=== PATIENT | male | born 1950 | race Caucasian/White ===

== ENCOUNTER 2024-01-21 21:01 | Emergency (ER) | payer OTHER, SELFPAY ==
[2024-01-21 21:09] VITALS: BP 144/64; PULSE 84; RESP 16; TEMP 36.6; O2SAT 98; BMI 21.6
--- NOTE | 2024-01-21 21:14 | ED_ITS ---
HPI - Wound/Laceration General Chief Complaint: Wound/Laceration Stated Complaint: chin laceration Time Seen by Provider: 01/21/24 21:12 Source: patient Mode of arrival: Ambulatory History of Present Illness HPI narrative: 73-year-old male with history of hypertension, end-stage renal disease on dialysis awaiting renal transplant. Patient was hiking today on [facility], caught a branch underneath his chin which caught him. He states he did not fall or have any other injuries. He does note he has some abrasions on his arms from his dogs claws but no other injuries. States tetanus is updated in the last 2 or 3 years. No known drug allergies. He is on medication for blood pressure, calcium and vitamin-D. No tobacco, occasional alcohol, no recreational drugs. Patient states no major surgeries. He lives in [place] but was visiting a property on [place] that they own. Patient is accompanied by his son. Review of Systems Review of Systems ROS Unobtainable: All systems reviewed & are unremarkable except as noted in HPI and below Patient History Social History Smoking Status: Never smoker Smoking Status: Never smoker alcohol intake frequency: holidays/special occasions only Substance Use Type: does not use Exam Narrative Exam Narrative: GENERAL: Alert and oriented x three, well-appearing male in mild distress HEENT: Head normocephalic, atraumatic except for 1/2 cm linear laceration in the soft tissue underneath the chin which gapes maximum 1/2 inch subcutaneous tissue exposed, no bone exposed is not through and through, EOMI, pupils reactive, face symmetric, moist mucous membranes NECK: Supple, full range of motion CARDIOVASCULAR: Regular rate and rhythm without murmurs, rubs or gallops. RESPIRATORY: Breath sounds equal bilaterally, no wheezes rales or rhonchi. ABDOMEN: Soft, nontender. Normoactive bowel sounds all 4 quadrants. No guarding or rebound, rigidity, no mass : No CVA tenderness EXTREMITIES: Normal range of motion, no clubbing or edema. Neurovascularly intact. Patient has a abrasions bilateral upper extremities, no warmth, erythema or other skin changes. NEUROLOGICAL: Cranial nerves II through XII grossly intact. Moving all extremities SKIN: Warm, dry, no petechiae, no rashes or lesions noted other than above. Initial Vital Signs Initial Vital Signs: Vital Signs Temperature 97.9 F 01/21/24 21:09 Pulse Rate 84 01/21/24 21:09 Respiratory Rate 16 01/21/24 21:09 Blood Pressure 144/64 H 01/21/24 21:09 Pulse Oximetry 98 01/21/24 21:09 Oxygen Delivery Method Room Air 01/21/24 21:09 Procedures Laceration Repair Laceration 1: Time of procedure: :29 Site: face (chin) Size (cm): 1.5 Description: linear and clean Depth: simple, single layer Local Anesthetic: lidocaine 2% Amount of anesthesia used (mL): 3 Pre-repair: wound explored, irrigated extensively and deep structures intact Skin layer closed with: nylon Skin layer suture size: 4-0 Number of sutures: 4 Technique: simple, interrupted Course Vital Signs Vital signs: Vital Signs - 8 hr 01/21/24 21:09 01/21/24 21:46 Temperature 97.9 F Pulse Rate 84 77 Respiratory Rate 16 18 Blood Pressure 144/64 H Pulse Oximetry 98 99 Oxygen Delivery Method Room Air MDM - Wound/Laceration MDM Narrative Medical decision making narrative: This is a 73-year-old male who had a laceration to his chin while hiking tree branch cut him. Patient states he did not have a fall or other injuries. Patient's tetanus is up-to-date. Area was cleansed, area was sutured patient tolerated well. Discussed return precautions and signs and symptoms to watch for. All questions answered. Discharge Plan Departure Patient Disposition: Home Clinical Impression: Chin laceration Instructions: DI for Laceration Repair Activity Restrictions/Additional Instructions: Follow up in the next 7-10 days for suture removal. You can follow up with primary care, urgent care for removal. 4 sutures were placed today. Wound Care: Keep wound(s) clean and dry. Wash daily with soap and water only. Do not use over the counter products (alcohol or peroxide)on the wounds unless instructed by a physician. You may use a topical triple antibiotic ointment to the affected area once daily as needed. If wound condition worsens (increased/expanding redness, developing fluid blisters, or worsening pain), either contact your doctor for an urgent re- assessment , or return to the Emergency Department. Return to the Emergency Department for any new or worsening symptoms. Return if fever greater than 100.4 Fahrenheit, increased swelling, increasing pain or worsening symptoms such as increased discharge or spreading redness. Stand Alone Forms: Patient Portal/API
[2024-01-21 21:46] VITALS: PULSE 77; RESP 18; O2SAT 99
== END 2024-01-21 21:48 | disposition home or self-care (01) ==
PROVIDERS: Emergency Provider Emergency Medicine
DX: S01.81XA Laceration without foreign body of other part of head, initial encounter (principal); W18.30XA Fall on same level, unspecified, initial encounter
CPT/HCPCS: 12011; 99281; 99283